=== PATIENT | female | born 2000 | race Caucasian/White ===

== ENCOUNTER 2025-08-23 09:48 | Outpatient (CLI) | payer SELFPAY ==
[2025-08-23 09:57] LABS: COC Drug Screen Collection Only
--- OUTSIDE RECORDS SUMMARY | 2025-08-23 10:16 | XMS_ITS | Encounter Summary ---
Author Organization Healthcare Address [address] [place] [address] Care Team Providers Care Luster Applicator Name Role Phone Pcp, No Primary Care Provider Amish Benítez APRN, MAHAMED Primary Care Provide r Lety Gray APRN, MAHAMED Primary Care Pro vider Reason for Visit * Reason Comments Med Refill Encounter Details Date Type Department Care Team (Late st Contact Info) Description 02/11/2023 Refill [facility] [address], [address] [place] [address] Dianna Fontaine APRN [address] [place] [address] Gender dysphoria Social History Tobacco Use Types Packs/Day Years Used Date Smoking Tobacco: Never Smokeless Tobacco: Never Alcohol Use Standard Drinks/Week Comments No 0 (1 standard drink = 0.6 oz pur e alcohol) PHQ-2 Answer Date Recorded PHQ-2 Score 0 12/08/2022 Comments Unknown Sex and Gender Information Value Date Recorded Sex Assigned at Female 05/03/2021 8:01 AM EDT Legal Sex Female 9:44 PM EDT Gender Identity Transgender Male 05/03/2021 8:01 AM EDT Sexual Orientation Perry 05/12/2023 8: 33 AM EDT documented as of this encounter Miscellaneous Notes * Telephone Encounter - Dianna Fontaine APRN - 02/12/2023 11:12 AM EDT Drafting Engineer has already refilled this * Telephone Encounter - Dianna Fontaine APRN - 02/12/2023 11:12 AM EDT This has been completed by REED PRESS FEEDER * Telephone Encounter - Lizzie Arciniega RN - 02/11/2023 1:01 PM EDT Nurse comments: Last seen by you on 01/08/2023, last labs 11/27/2022 No Known Allergies Refill request received: Electronic request from pharmacy documented in this encounter Plan of Treatment Upcoming Encounters Date Type Department Care Team (Late st Contact Info) Description 02/01/2026 9:00 AM EDT Consult [facility] Medicine [address] [facility], [address] [place] [address] Jessica Milan MD [address] [facility] [address] [place] [address] documented as of this encounter Visit Diagnoses Diagnosis Gender dysphoria documented in this encounter Additional Health Concerns Assessment Noted Time PHQ-9 Depression Total Score: 16 021 10:32 AM EDT A Body Mass Index follow-up plan has been documented for the patient 12/08/2022 3:22 PM EST documented as of this encounter Care Teams Luster Applicator Relationship Specialty Start Date End Date Pcp, Kaela [address] [place] [address] PCP - General Family Medicine 05/12/23 04/03/24 Amish Bowman APRN, DNP [address] [place] [address] PCP - General Family Medicine 04/04/24 11/22/24 Lety Gray APRN, MAHAMED [address] [place], [place] [phone] PCP - General Family Medicine 11/23/24 documented as of this encounter
--- OUTSIDE RECORDS SUMMARY | 2025-08-23 10:16 | XMS_ITS | Encounter Summary ---
Author Organization Healthcare Address [address] [place] [address] Care Team Providers Care Gas Appliance Adjuster Name Role Phone Jessica Milan MD Primary Care Provider [phone] Pcp, No Primary Care Provider Amish Benítez APRN, MAHAMED Primary Care Provide r Lety Gray APRN, MAHAMED Primary Care Pro vider Reason for Visit * Reason Comments Med Refill Encounter Details Date Type Department Care Team (Late st Contact Info) Description 11/11/2022 Refill [facility] [address], [address] [place] [address] Dianna Fontaine APRN [address] [place] [address] Gender dysphoria Social History Tobacco Use Types Packs/Day Years Used Date Smoking Tobacco: Never Smokeless Tobacco: Never Alcohol Use Standard Drinks/Week Comments No 0 (1 standard drink = 0.6 oz pur e alcohol) PHQ-2 Answer Date Recorded PHQ-2 Score 0 06/11/2022 Comments Unknown Sex and Gender Information Value Date Recorded Sex Assigned at Female 05/03/2021 8:01 AM EDT Legal Sex Female 9:44 PM EDT Gender Identity Transgender Male 05/03/2021 8:01 AM EDT Sexual Orientation Perry 05/12/2023 8: 33 AM EDT documented as of this encounter Miscellaneous Notes * Telephone Encounter - Dianna Fontaine APRN - 11/17/2022 1:14 PM EST Pt and I communicating through [employer] to set up appointment. * Telephone Encounter - Lizzie Arciniega LPN - 11/12/2022 11:48 AM EST No Known Allergies Refill request received: Electronic request from pharmacy Any current refills remaining: not sure of frequency Next appointment with provider/student health: NONE Refill does not fall under our protocol. If no further action needed, please click Approve and then sign the encounter. If further action needed, please click refuse and route , then be sure to include a message back to the nurse stating what further action is needed. Last pap on record: No results found for: INTERPGYN documented in this encounter Plan of Treatment Upcoming Encounters Date Type Department Care Team (Late st Contact Info) Description 02/01/2026 9:00 AM EDT Consult [facility] Family and Community Medicine [address] [address] Jessica Milan MD [address] [address] documented as of this encounter Visit Diagnoses Diagnosis Gender dysphoria documented in this encounter Additional Health Concerns Assessment Noted Time PHQ-9 Depression Total Score: 16 021 10:32 AM EDT documented as of this encounter Care Teams Gas Appliance Adjuster Relationship Specialty Start Date End Date Jessica Milan MD [address] [address] PCP - General 03/08/21 12/07/22 Pcp, Kaela [address] [place] [address] PCP - General Family Medicine 05/12/23 04/03/24 Amish Bowman APRN, DNP [address] [place] [address] PCP - General Family Medicine 04/04/24 11/22/24 Lety Gray APRN, DNP [address] [place] [address] PCP - General Family Medicine 11/23/24 documented as of this encounter
--- OUTSIDE RECORDS SUMMARY | 2025-08-23 10:16 | XMS_ITS | Encounter Summary ---
Author Organization Healthcare Address [address] [place] [address] Care Team Providers Care Semiconductor Wafer Inspector Name Role Phone Pcp, No Primary Care Provider Amish Benítez APRN, MAHAMED Primary Care Provide r Lety Gray APRN, MAHAMED Primary Care Pro vider Reason for Visit * Reason Comments Med Refill Encounter Details Date Type Department Care Team (Late st Contact Info) Description 12/14/2023 Refill [facility] Student [facility] [address], [address]nd [place] [address] Lety Saleh APRN [address] [place] [address] Gender dysphoria Social History Tobacco Use Types Packs/Day Years Used Date Smoking Tobacco: Never Smokeless Tobacco: Never Alcohol Use Standard Drinks/Week Comments No 0 (1 standard drink = 0.6 oz pur e alcohol) PHQ-2 Answer Date Recorded Patient Health Questionnaire-2 Score 0 11/04/2023 PHQ-2A Answer Date Recorded Patient Health Questionnaire-2 Score 0 08/05/2023 Comments Unknown Sex and Gender Information Value Date Recorded Sex Assigned at Female 05/03/2021 8:01 AM EDT Legal Sex Female 9:44 PM EDT Gender Identity Transgender Male 05/03/2021 8:01 AM EDT Sexual Orientation Perry 05/12/2023 8: 33 AM EDT documented as of this encounter Miscellaneous Notes * Telephone Encounter - Radha Mackey - 12/14/2023 3:41 PM EST [employer] message sent to patient to schedule an appointment. * Telephone Encounter - Lety Saleh APRN - 12/14/2023 3:06 PM EST All testosterone refills must make an appt. * Telephone Encounter - Radha Mackey - 12/14/2023 2:46 PM EST Nurse comments: No Known Allergies Refill request received: Electronic request from pharmacy documented in this encounter Plan of Treatment Upcoming Encounters Date Type Department Care Team (Late st Contact Info) Description 02/01/2026 9:[address] [facility] Family and Community Medicine [address] [facility], [address] [place] [address] Jessica Milan MD [address] [facility] [address] [place] [address] documented as of this encounter Visit Diagnoses Diagnosis Gender dysphoria documented in this encounter Additional Health Concerns Assessment Noted Time PHQ-9 Depression Total Score: 16 021 10:32 AM EDT A Body Mass Index follow-up plan has been documented for the patient 11/04/2023 2:28 PM EST documented as of this encounter Care Teams Semiconductor Wafer Inspector Relationship Specialty Start Date End Date Pcp, Kaela [address] [place] [address] PCP - General Family Medicine 05/12/23 04/03/24 Amish Bowman APRN, DNP [address] [place] [phone] PCP - General Family Medicine 04/04/24 11/22/24 Lety Gray APRN, MAHAMED [address] [place] [address] PCP - General Family Medicine 11/23/24 documented as of this encounter
--- OUTSIDE RECORDS SUMMARY | 2025-08-23 10:16 | XMS_ITS | Encounter Summary ---
Author Organization [facility] Address [address] [place] [address] Care Team Providers Care Theatre Manager Name Role Phone Jessica Milan MD Primary Care Provider [phone] Pcp, No Primary Care Provider Amish Benítez APRN, MAHAMED Primary Care Provide r Lety Gray APRN, MAHAMED Primary Care Pro vider Reason for Visit * Reason Onset Date Comments Med Refill 09/24/2021 Encounter Details Date Type Department Care Team (Late st Contact Info) Description 09/24/2021 Refill [facility] [address] [place] [address] Tabatha Xiao APRN [address] [facility] [address] [place] [address] Social History Tobacco Use Types Packs/Day Years Used Date Smoking Tobacco: Never Alcohol Use Standard Drinks/Week Comments No 0 (1 standard drink = 0.6 oz pur e alcohol) PHQ-2 Answer Date Recorded Patient Health Questionnaire-2 Score 0 09/02/2021 Comments Unknown Sex and Gender Information Value Date Recorded Sex Assigned at Female 05/03/2021 8:01 AM EDT Legal Sex Female 9:44 PM EDT Gender Identity Transgender Male 05/03/2021 8:01 AM EDT Sexual Orientation Perry 05/12/2023 8: 33 AM EDT COVID-19 Exposure Response Date Recorded In the last month, have you been in contact with someone who was confirmed or suspected to have Coronavirus / COVID-19? No / Unsure 09/02/2021 7:41 AM EST documented as of this encounter Plan of Treatment Upcoming Encounters Date Type Department Care Team (Late st Contact Info) Description 02/01/2026 9:00 AM EDT Consult [facility] Medicine [address], [address] [place] [address] Jessica Milan MD [address] [facility] [address] [place] [address] documented as of this encounter Visit Diagnoses Not on filedocumented in this encounter Additional Health Concerns Assessment Noted Time PHQ-9 Depression Total Score: 16 021 10:32 AM EDT documented as of this encounter Care Teams Theatre Manager Relationship Specialty Start Date End Date Jessica Milan MD [address] [facility] [address] [place] [address] PCP - General 03/08/21 12/07/[address] [place] [address] PCP - General Family Medicine 05/12/23 04/03/24 Amish Bowman APRN, DNP [address] [place] [address] PCP - General Family Medicine 04/04/24 11/22/24 Lety Gray APRN, DNP [address] [place] [address] PCP - General Family Medicine 11/23/24 documented as of this encounter
--- OUTSIDE RECORDS SUMMARY | 2025-08-23 10:16 | XMS_ITS | Encounter Summary ---
Author Organization [facility] Address [address] [place] [address] Care Team Providers Care Real Estate Underwriter Name Role Phone Jessica Milan MD Primary Care Provider [phone] Pcp, No Primary Care Provider Amish Benítez APRN, MAHAMED Primary Care Provide r Lety Gray APRN, MAHAMED Primary Care Pro vider Reason for Visit * Reason Onset Date Comments Med Refill 09/30/2021 Encounter Details Date Type Department Care Team (Late st Contact Info) Description 09/30/2021 Refill [facility] [address] [place] [address] Tabatha Xiao APRN [address] [facility] [address] [place] [address] Social History Tobacco Use Types [...] Info) Description 02/01/2026 9:00 AM EDT Consult [facility] Medicine [address], [address] [place] [address] Jessica Milan MD [address] [facility] [address] [place] [address] documented as of this encounter Visit Diagnoses Not on filedocumented in this encounter Additional Health Concerns Assessment Noted Time PHQ-9 Depression Total Score: 16 021 10:32 AM EDT documented as of this encounter Care Teams Real Estate Underwriter Relationship Specialty Start Date End Date Jessica Milan MD [address] [facility] [address] [place] [address] PCP - General 03/08/21 12/07/[address] [place] [address] PCP - General Family Medicine 05/12/23 04/03/24 Amish Bowman APRN, DNP [address] [place] [address] PCP - General Family Medicine 04/04/24 11/22/24 Lety Gray APRN, DNP [address] [place] [address] PCP - General Family Medicine 11/23/24 documented as of this encounter
--- OUTSIDE RECORDS SUMMARY | 2025-08-23 10:16 | XMS_ITS | Encounter Summary ---
Author Organization Healthcare Address [address] [place] [address] Care Team Providers Care Locomotive Oiler Name Role Phone Jessica Milan MD Primary Care Provider [phone] Pcp, No Primary Care Provider Amish Benítez APRN, MAHAMED Primary Care Provide r Lety Gray APRN, MAHAMED Primary Care Pro vider Reason for Visit * Reason Comments Med Refill Encounter Details Date Type Department Care Team (Late st Contact Info) Description 07/15/2022 Refill [facility] Student [facility] [address], [address] [place] [address] Brianna [facility] [address] [place] [address] Gender dysphoria Social History Tobacco [...] encounter Miscellaneous Notes * Telephone Encounter - Viridiana Ag RN - 07/18/2022 9:42 AM EDT Left VM, text & sent a message through my chart to set up an appointment for refills with Iram [facility]. * Telephone Encounter - Dianna Fontaine APRN - 07/16/2022 11:45 AM EDT Message sent to pt to set up an appointment * Telephone Encounter - Dianna Fontaine APRN - 07/16/2022 9:02 AM EDT Can we call this patient. They need to set up an appointment with Brianna [facility]. No appointment since december documented in this encounter Plan of Treatment Upcoming Encounters Date Type Department Care Team (Late st Contact Info) Description 02/01/2026 9:00 AM EDT Consult [facility] and Community Medicine [address] , [facility] [address] [place] [address] Jessica Milan MD [address] [address] documented as of this encounter Visit Diagnoses Diagnosis Gender dysphoria documented in this encounter Additional Health Concerns Assessment Noted Time PHQ-9 Depression Total Score: 16 021 10:32 AM EDT documented as of this encounter Care Teams Locomotive Oiler Relationship Specialty Start Date End Date Jessica Milan MD [address] [place] [address] PCP - General 03/08/21 12/07/22 Pcp, [place] [address] PCP - General Family Medicine 05/12/23 04/03/24 Amish Bowman APRN, DNP [address] [place] [address] PCP - General Family Medicine 04/04/24 11/22/24 Lety Gray APRN, DNP [address] [place] [address] PCP - General Family Medicine 11/23/24 documented as of this encounter
--- OUTSIDE RECORDS SUMMARY | 2025-08-23 10:16 | XMS_ITS | Encounter Summary ---
Author Organization [facility] Address [address] [place] [address] Care Team Providers Care Non Destructive Evaluation Technician Name Role Phone Jessica Milan MD Primary Care Provider Pcp, No Primary Care Provider Amish Benítez APRN, MAHAMED Primary Care Provide r Lety Gray APRN, MAHAMED Primary Care Pro vider Reason for Visit * Reason Onset Date Comments Med Refill 09/25/2021 Encounter Details Date Type Department Care Team (Late st Contact Info) Description 09/25/2021 Refill [facility] [address] [place] [address] Tabatha Xiao APRN [address] [facility] [address] [place] [address] Social History Tobacco Use Types [...] Info) Description 02/01/2026 9:00 AM EDT Consult [facility] Medicine [address] [place] [address] Jessica Milan MD [address] [facility] [address] [place] [address] documented as of this encounter Visit Diagnoses Not on filedocumented in this encounter Additional Health Concerns Assessment Noted Time PHQ-9 Depression Total Score: 16 021 10:32 AM EDT documented as of this encounter Care Teams Non Destructive Evaluation Technician Relationship Specialty Start Date End Date Jessica Milan MD [address] [facility] [address] [place] [address] PCP - General 03/08/21 12/07/[address] [place] [address] PCP - General Family Medicine 05/12/23 04/03/24 Amish Bowman APRN, DNP [address] [place] [address] PCP - General Family Medicine 04/04/24 11/22/24 Lety Gray APRN, DNP [address] [place] [address] PCP - General Family Medicine 11/23/24 documented as of this encounter
--- OUTSIDE RECORDS SUMMARY | 2025-08-23 10:16 | XMS_ITS | Encounter Summary ---
Author Organization [facility] Address [address] [place] [address] Care Team Providers Care Cat Sitter Name Role Phone Jessica Milan MD Primary Care Provider [phone] Pcp, No Primary Care Provider Amish Benítez APRN, MAHAMED Primary Care Provide r Lety Gray APRN, MAHAMED Primary Care Pro vider Reason for Visit * Reason Onset Date Comments Med Refill 09/21/2021 Encounter Details Date Type Department Care Team (Late st Contact Info) Description 09/21/2021 Refill [facility] [address] [place] [address] Tabatha Xiao APRN [address] [facility] [address] [place] [address] Social History Tobacco Use Types [...] Male 05/03/2021 8:01 AM EDT Sexual Orientation Peryr 05/12/2023 8: 33 AM EDT COVID-19 Exposure Response Date Recorded In the last month, have you been in contact with someone who was confirmed or suspected to have Coronavirus / COVID-19? No / Unsure 09/02/2021 7:41 AM EST documented as of this encounter Miscellaneous Notes * Telephone Encounter - Avelina Biswas MA - 09/25/2021 1:38 PM EST Called Pharmacy , new Script on File documented in this encounter Plan of Treatment Upcoming Encounters Date Type Department Care Team (Late st Contact Info) Description 02/01/2026 9:00 AM EDT Consult [facility] and Community Medicine [address] [place] [address] Jessica Milan MD [address] [facility] [address] [place] [address] documented as of this encounter Visit Diagnoses Not on filedocumented in this encounter Additional Health Concerns Assessment Noted Time PHQ-9 Depression Total Score: 16 021 10:32 AM EDT documented as of this encounter Care Teams Cat Sitter Relationship Specialty Start Date End Date Jessica Milan MD [address] [place] [address] PCP - General 03/08/21 12/07/22 Pcp, Kaela [address] [place] [address] PCP - General Family Medicine 05/12/23 04/03/24 Amish Bowman APRN, DNP [address] [place] [address] PCP - General Family Medicine 04/04/24 11/22/24 Lety Gray APRN, DNP [address] [place] [address] PCP - General Family Medicine 11/23/24 documented as of this encounter
--- OUTSIDE RECORDS SUMMARY | 2025-08-23 10:17 | XMS_ITS | Encounter Summary ---
Author Organization Healthcare Address [address] [place] [address] Care Team Providers Care Button Maker And Installer Name Role Phone Jessica Milan MD Primary Care Provider [phone] Pcp, No Primary Care Provider Amish Benítez APRN, MAHAMED Primary Care Provide r Lety Gray APRN, MAHAMED Primary Care Pro vider Reason for Visit * Reason Onset Date Comments Med Refill 09/02/2022 Encounter Details Date Type Department Care Team (Late st Contact Info) Description 09/02/2022 Refill [facility] Health [address], [address] [place] [address] Brianna Worthington [address] [place] [address] Gender dysphoria Social History Tobacco [...] encounter Miscellaneous Notes * Telephone Encounter - Lizzie Arciniega LPN - 09/17/2022 9:55 AM EST No Known Allergies Refill request received: Electronic request from patient and Other Any current refills remaining: Yes Next appointment with provider/student health: none Refill does not fall under our protocol. If no further action needed, please click Approve and then sign the encounter. If further action needed, please click refuse and route , then be sure to include a message back to the nurse stating what further action is needed. Last pap on record: No results found for: INTERPGYN This order is a duplicate. I cannot close it. Please close. documented in this encounter Plan of Treatment Upcoming Encounters Date Type Department Care Team (Late st Contact Info) Description 02/01/2026 9:[address] [facility] Family and Community Medicine [address], [address] [address] Jessica Milan MD [address] [address] documented as of this encounter Visit Diagnoses Diagnosis Gender dysphoria documented in this encounter Additional Health Concerns Assessment Noted Time PHQ-9 Depression Total Score: 16 021 10:32 AM EDT documented as of this encounter Care Teams Button Maker And Installer Relationship Specialty Start Date End Date Jessica Milan MD [address] [address] PCP - General 03/08/21 12/07/22 Pcp, Kaela [address] [place] [address] PCP - General Family Medicine 05/12/23 04/03/24 Amish Bowman APRN, DNP [address] [place] [phone] PCP - General Family Medicine 04/04/24 11/22/24 Lety Gray APRN, MAHAMED [address] [place] [address] PCP - General Family Medicine 11/23/24 documented as of this encounter
--- OUTSIDE RECORDS SUMMARY | 2025-08-23 10:17 | XMS_ITS | Encounter Summary ---
Author Organization Healthcare Address [address] [place] [address] Care Team Providers Care Mini Shifter Name Role Phone Jessica Milan MD Primary Care Provider [phone] Pcp, No Primary Care Provider Amish Benítez APRN, MAHAMED Primary Care Provide r Lety Gray APRN, MAHAMED Primary Care Pro vider Reason for Visit * Reason Comments Med Refill Encounter Details Date Type Department Care Team (Late st Contact Info) Description 09/02/2022 Refill [facility] Student Health [address], [address] [place] [address] Brianna Worthington [address] [place] [address] Gender dysphoria Social History Tobacco [...] encounter Miscellaneous Notes * Telephone Encounter - Brianna Worthington APRN - 09/03/2022 9:49 AM EST Refilled on 09/02/2022 already. documented in this encounter Plan of Treatment Upcoming Encounters Date Type Department Care Team (Late st Contact Info) Description 02/01/2026 9:00 AM EDT Consult [facility] Community Medicine [address] [place] [address] Jessica Milan MD [address] [facility] [address] [place] [address] documented as of this encounter Visit Diagnoses Diagnosis Gender dysphoria documented in this encounter Additional Health Concerns Assessment Noted Time PHQ-9 Depression Total Score: 16 021 10:32 AM EDT documented as of this encounter Care Teams Mini Shifter Relationship Specialty Start Date End Date Jessica Milan MD [address] [facility] 125 [place] [address] PCP - General 03/08/21 12/07/22 Pcp, Kaela [address] [place] [address] PCP - General Family Medicine 05/12/23 04/03/24 Amish Bowman APRN, MAHAMED [address] [place] [address] PCP - General Family Medicine 04/04/24 11/22/24 Lety Gray APRN, MAHAMED [address] [place] [address] PCP - General Family Medicine 11/23/24 documented as of this encounter
--- OUTSIDE RECORDS SUMMARY | 2025-08-23 10:17 | XMS_ITS | Encounter Summary ---
Author Organization Healthcare Address [address] [place] [address] Care Team Providers Care Bracelet Former Name Role Phone Jessica Milna MD Primary Care Provider [phone] Pcp, No Primary Care Provider Amish Benítez APRN, MAHAMED Primary Care Provide r Lety Gray APRN, MAHAMED Primary Care Pro vider Reason for Visit * Reason Onset Date Comments Med Refill 10/11/2022 Encounter Details Date Type Department Care Team (Late st Contact Info) Description 10/11/2022 Refill [facility] [address] [place] [address] Brianna Worthington [address] [place] [address] Gender dysphoria Social History Tobacco [...] Telephone Encounter - Dianna Fontaine APRN - 10/13/2022 3:33 PM EST [facility] sent in via imprivata and note was left in chart * Telephone Encounter - Carol Biswas RN - 10/13/2022 2:49 PM EST No Known Allergies Refill request received: Electronic request from patient Any current refills remaining: No Refill does not fall under our protocol. If no further action needed, please click Approve and then sign the encounter. If further action needed, please click refuse and route , then be sure to include a message back to the nurse stating what further action is needed. See refill request for testosterone documented in this encounter Plan of Treatment Upcoming Encounters Date Type Department Care Team (Late st Contact Info) Description 02/01/2026 9:00 AM EDT Consult [facility] [address], [address] [address] Jessica Milan MD [address] [address] documented as of this encounter Visit Diagnoses Diagnosis Gender dysphoria documented in this encounter Additional Health Concerns Assessment Noted Time PHQ-9 Depression Total Score: 16 021 10:32 AM EDT documented as of this encounter Care Teams Bracelet Former Relationship Specialty Start Date End Date Jessica Milan MD [address] [address] PCP - General 03/08/21 12/07/22 Pcp, Kaela [address] [place] [address] PCP - General Family Medicine 05/12/23 04/03/24 Amish Bowman APRN, DNP [address] [place] [address] PCP - General Family Medicine 04/04/24 11/22/24 Lety Gray APRN, DNP [address] [place] [address] PCP - General Family Medicine 11/23/24 documented as of this encounter
--- OUTSIDE RECORDS SUMMARY | 2025-08-23 10:17 | XMS_ITS | Clinical Summary ---
Author Organization [facility] Address [address] [place] [address] Care Team Providers Care Broker Associate Name Role Phone Lety Gray APRN, MAHAMED Primary Care Pro vider Allergies No known active allergies Medications * This document contains information received from the source organization and may not represent a complete record from that organization. BD Disp [place] 20G X 1 miscIndications :Gender dysphoria in adult Use to draw testosterone from vial 50 each 1 4 Active BD SafetyGlide Needle 25G X 5/8 miscIndications :Gender dysphoria in adult Use to inject Testosterone medicine 50 each 1 5 Active B-D SYRINGE LUER-SHUKRI 1CC 1 ML miscIndications :Gender dysphoria in adult Use to draw up and inject testosterone 50 each 1 5 Active FLUoxetine (PROzac) 20 MG capsuleIndicati ons:Generalized anxiety disorder Take 1 capsule by mouth daily. 90 capsule 3 5 05/17/20 26 Active testosterone cypionate (Depo-Testoster one) 200 MG/ML injectionIndica tions:Gender dysphoria,Gende r dysphoria in adult INJECT 0.25 ML (50 MG) subcutaneous weekly. Single use vial. Discard after one dose. 28 day supply 4 mL 5 Active Syringe/Needle, Disp, (B-D SYRINGE/NEEDLE 1CC/25GX5/8) 25G X 5/8 1 ML miscIndications :Gender dysphoria,Gende r dysphoria in adult 1 Syringe 1 time per week. 10 each 11 5 Active Needle, Disp, 21G X 1 miscIndications :Gender dysphoria in adult 1 Syringe 1 time per week. 50 each 1 5 Active Active Problems Problem Noted Date Diagnosed Date Attention and concentration deficit 08/06/2021 Generalized anxiety disorder 08/06/2021 Adjustment disorder with depressed mood 08/06/20 21 Acne 09/26/2020 Gender dysphoria in adult 10/03/2019 Immunizations Immunization Administration Dates Next Due Influenza, injectable, quadrivalent, preservativ e free 09/26/2020 Influenza, seasonal, injectable, preservative fr ee 11/23/2024 Family History Medical History Relation Name Comments Anxiety disorder Father Willis Siddiqui prescription drug abuse Father Willis S[place]i Alcohol abuse Mother [place] COPD Mother [place] Diabetes Mother [place] Hypertension Mother [place] polysubstance abuse Mother [place] Cardiac disorder Other 1 Hyperlipidemia Other 2 Anxiety disorder Sister [place] Bipolar disorder Sister [place] Self-Injury Sister [place] substance abuse Sister [place] Relation Name Status Comments Father Willis Siddiqui Alive Mother [place] Alive Other 1 Other 2 Sister [place] Alive Social History Tobacco Use Types Packs/Day Years Used Date Smoking Tobacco: Never Passive Smoke Exposure: Past Smokeless Tobacco: Never Tobacco Cessation:Counseling Given: Not Answered Alcohol Use Standard Drinks/Week Comments No 0 (1 standard drink = 0.6 oz pur e alcohol) Humiliation, Afraid, Rape, and Kick questionnair e Answer Date Recorded Within the last year, have y ou been afraid of your partner or ex-partner? No 11/23/2024 Within the last year, have y ou been humiliated or emotionally abused in other ways by your partner or ex-partner? No Within the last year, have y ou been kicked, hit, slapped, or otherwise physically hurt by your partner or ex-partner? No 11/23/2024 Within the last year, have y ou been raped or forced to have any kind of sexual activity by your partner or ex-partner? No 11/23/2024 PHQ-2 Answer Date Recorded Patient Health Questionnaire-2 Score 5 01/17/2025 Hunger Vital Sign Answer Date Recorded Within the past 12 months, y ou worried that your food would run out before you got the money to buy more. Often true Within the past 12 months, t he food you bought just didn't last and you didn't have money to get more. Sometimes true PRAPARE - Transportation Answer Date Re corded In the past 12 months, has l ack of transportation kept you from medical appointments or from getting medications? No 10/27 In the past 12 months, has l ack of transportation kept you from meetings, work, or from getting things needed for daily living? No 11/23/2024 Housing Stability Vital Sign Answer Kieran e Recorded In the last 12 months, was t here a time when you were not able to pay the mortgage or rent on time? No 04/04/2024 In the last 12 months, how many places have you lived? 3 04/04/2024 In the last 12 months, was t here a time when you did not have a steady place to sleep or slept in a skilled nursing (including now)? No 04/04/2024 PHQ-9 Answer Date Recorded Patient Health Questionnaire-9 Score 15 01/17/2025 Housing Stability Vital Sign Answer Kieran e Recorded In the last 12 months, was t here a time when you were not able to pay the mortgage or rent on time? No 11/23/2024 In the past 12 months, how m any times have you moved where you were living? 2 11/23/2024 At any time in the past 12 m [facility], were you homeless or living in a skilled nursing (including now)? No 11/23/2024 Utilities Answer Date Recorded In the past 12 months has th e electric, gas, oil, or water company threatened to shut off services in your home? No 11/23/2024 PHQ-2A Answer Date Recorded Patient Health Questionnaire-2 Score 0 08/05/2023 Comments Unknown Sex and Gender Information Value Date Recorded Sex Assigned at Female 05/03/2021 8:01 AM EDT Legal Sex Female 9:44 PM EDT Gender Identity Transgender Male 05/03/2021 8:01 AM EDT Sexual Orientation [place] 05/12/2023 8: 33 AM EDT Last Filed Vital Signs Vital Sign Reading Time Taken Comments Blood Pressure 128/83 01/17/2025 1:25 PM EDT Pulse 66 01/17/2025 1:25 PM EDT Temperature 36.7 C (98.1 F) 02/10/2024 2:26 PM EDT Respiratory Rate 15 05/17/2025 9:10 AM EDT Oxygen Saturation 98% 01/17/2025 1:25 PM EDT Inhaled Oxygen Concentration - - Weight 81.6 kg (180 lb) 05/17/2025 9:10 AM EDT Height 167.6 cm (5' 6 ) 05/17/2025 9:10 AM EDT Body Mass Index 29.05 05/17/2025 9:10 AM EDT Plan of Treatment Upcoming Encounters Date Type Department Care Team (Late st Contact Info) Description 02/01/2026 9:00 AM EDT Consult [facility] [address] , [address] [place] [address] Jessica Milan MD [address] [place] [address] Health Maintenance Due Date Last Done Comments [facility]-HIV Screening 2001 [facility]-Hepatitis C Screening 2001 [facility]-/Child/Adol SDOH Screenings 2001 [facility]-Varicella Vaccines (1 of 2 - 13+ 2-dose series) 2014 HPV Vaccines (1 - 3-dose series) 02/20/2016 [facility]-DTaP,Tdap,and Td Vaccines (1 - Tdap) 02/20/2020 [facility]-Hepatitis B Vaccines (1 of 3 - 19+ 3-dose series) 02/20/2020 [facility]-Pap Smear 2022 [facility]- SDOH Screenings 05/23/2025 [facility]-Adult SDOH Screenings 05/23/2025 11/23/2024 [id number] Vaccine (3 - season) 2025 02/22/2021, 01/17/2021 [facility]-Influenza Vaccine (#1) 06/26/202511/23, 07/25/2021, 09/26/2020 [facility]-Depression Screening 01/17/2026 01/17/2025, 12/25 [facility]-Zoster Vaccines (1 of 2) 2051 [facility]-Obesity Intervention Completed 025, 03/21/2025, 01/17/2025, Additional history exists [facility]-HIB Vaccines Aged Out No longer e ligible based on patient's age to complete this topic [facility]-Hepatitis A Vaccines Aged Out No longer eligible based on patient's age to complete this topic [facility]-IPV Vaccines Aged Out No longer e ligible based on patient's age to complete this topic [facility]-Pneumococcal Vaccine: Pediatrics (0 to 5 Years) and At-Risk Patients (6 to 49 Years) Aged Out No longer eligible based on patient's age to complete this topic [facility]-Rotavirus Vaccines Aged Out No lo nger eligible based on patient's age to complete this topic [place] [address] [place] [address] MEDICAID Care Teams Broker Associate Relationship Specialty Start Date End Date Lety Gray APRN, DNP [address] [place] [address] PCP - General Family Medicine 11/23/24
== END 2025-08-23 23:59 | disposition home or self-care (01) ==
LOC: LAB 09:51
DX: R69 Illness, unspecified (principal)